=== PATIENT | male | born 1995 | race Caucasian/White ===

== ENCOUNTER 2019-06-07 16:21 | Emergency (ER) | payer BC ==
[~2019-06-07] VITALS: Ht 180.3 cm; Wt 79.4 kg
--- NOTE | 2019-06-07 16:31 | NUR ---
C/O RFA PAIN, ""WAS SNOWBOARDING AND FELL, HYPEREXTENDED MY ARM AND HEARD A SNAP". TO ER BED 2, HOOKED TO MONITOR, CHANGED TO HOSP GOWN, WARM BLANKET PROVIDED, PATIENT AOx 4, BREATHING EVEN AND UNLABORED, NAD NOTED. DR GARCIA AT BEDSIDE.
[2019-06-07] MEDS ORDERED: HYDROCODONE/APAP 5/325MG 1 EACH TABLET ONE (17:15)
[2019-06-07] MEDS ORDERED: IBUPROFEN 600 MG TABLET PO ONE (17:30)
[2019-06-07] MEDS ORDERED: HYDROCODONE/APAP 5/325MG 1 EACH TABLET PO ONE (17:30)
--- NOTE | 2019-06-07 17:33 | NUR ---
Patient discharged to home in stable condition. Written and verbal after care instructions given. Patient verbalizes understanding of instruction.
[2019-06-07 17:35] VITALS: BP 142/71
[2019-06-08] MEDS ORDERED: ACETAMINOPHEN 325 MG TABLET ONE (01:33)
== END 2019-06-07 17:36 | disposition home or self-care (01) ==
LOC: ER 16:38
DX: S63.8X1A Sprain of other part of right wrist and hand, initial encounter (principal); J45.909 Unspecified asthma, uncomplicated; Z60.2 Problems related to living alone; W18.39XA Other fall on same level, initial encounter; Y93.23 Activity, snow (alpine) (downhill) skiing, snowboarding, sledding, tobogganing and snow tubing; Y92.89 Other specified places as the place of occurrence of the external cause; Y99.8 Other external cause status
CPT/HCPCS: 29125; 73090; 73110; 99284; L3763